=== PATIENT | male | born 1995 | race Caucasian/White ===

== ENCOUNTER 2023-06-28 09:28 | Outpatient (CLI) | payer BC, SELFPAY ==
--- NOTE | 2023-06-28 09:43 | ECG_ITS ---
Measurements Intervals [place] Rate: 74 P: 48 SC: 137 QRS: -40 QRSD: 113 T: 10 QT: 372 QTc: 415 Interpretive Statements SINUS RHYTHM WITH SINUS ARRHYTHMIA LEFT AXIS DEVIATION INCOMPLETE RIGHT BUNDLE BRANCH BLOCK DELAYED PRECORDIAL R/S TRANSITION BORDERLINE ECG NO PREVIOUS ECG AVAILABLE FOR COMPARISON Electronically Signed On 06-28-2023 11:21:00 CDT by Higinio Chávez D.O.
[2023-06-28 09:55] LABS: Basophils Absolute Auto 0.1 K/mm3 (0.0-0.1); Basophils Percent Auto 0.9 % (0.2-1.2); Eosinophils Absolute Auto 0.2 K/mm3 (0-0.3); Eosinophils Percent Auto 1.6 % (0-4.4); Hematocrit 47.8 % (42.0-52.0); Hemoglobin 15.4 g/dL (14.0-18.0); Immature Granulocyte Absolute 0.02 K/mm3 (0.00-0.031); Immature Granulocyte Percent A 0.2 % (0-0.5); Lymphocytes Absolute Auto 3.15 K/mm3 (0.9-3.2); Lymphocytes Percent Auto 33.5 % (18.3-44.2); Mean Corpuscular HGB Conc 32.2 g/dl (32-36); Mean Corpuscular Hemoglobin 28.4 pg (26-34); Mean Platelet Volume 9.4 fl (7.4-10.4); Monocytes Absolute Auto 0.8 K/mm3 (0.1-0.6); Neutrophils Absolute Auto 5.3 K/mm3 (1.3-6.7); Neutrophils Percent Auto 55.8 % (45.5-73.1); Platelet Count Result 214 k/mm3 (150-375); Red Blood Count 5.43 M/mm3 (4.6-6.20); Red Cell Distribution Width 13.4 % (11.5-14.5); White Blood Count 9.4 K/mm3 (4.5-10.0)
[2023-06-28 10:09] LABS: Cholesterol 189 mg/dL (0-200); HDL Direct 40 mg/dL; Triglycerides 169 mg/dL (<150)
[2023-06-28 10:20] LABS: LDL Cholesterol Direct 98 mg/dL
[2023-06-28 10:40] LABS: Thyroid Stimulating Hormone 0.898 uIU/mL (0.465-4.680)
== END 2023-06-28 09:29 | disposition home or self-care (01) ==
PROVIDERS: PCP Family Medicine; Visit Provider Physician Assistant Medical
DX: R07.89 Other chest pain (principal); E78.5 Hyperlipidemia, unspecified; F41.9 Anxiety disorder, unspecified; Z13.220 Encounter for screening for lipoid disorders; R94.31 Abnormal electrocardiogram [ECG] [EKG]
CPT/HCPCS: 36415; 80061; 84443; 85025; 93005

== ENCOUNTER 2024-06-08 15:37 | Outpatient (CLI) | payer BC, SELFPAY ==
--- NOTE | ~2024-06-08 | XR_ITS ---
EXAMINATION: XR_[id number]_CR DATE: 06/08/2024 16:14 INDICATION: Neck pain. TECHNIQUE: 3 views of the cervical spine on 4 radiographs were obtained. COMPARISON: None. FINDINGS: There is 5 degrees levocurvature of cervical spine. Vertebral body heights and intervertebr al disc heights are normal. Osseous central spinal canal is developmentally small. There is multileve l mild facet joint osteoarthritis. No prevertebral soft tissue swelling. IMPRESSION: 1. Developmentally small central spinal canal. Reviewed, dictated and finalized at location A.
--- NOTE | ~2024-06-08 | XR_ITS ---
EXAMINATION: XR lumbar spine 2-3V DATE: 06/08/2024 16:14 INDICATION: Low back pain. TECHNIQUE: 2 views of lumbar spine were obtained. COMPARISON: None. FINDINGS: Bone alignment is normal. Vertebral body heights and intervertebral disc heights are normal . There are Schmorl's nodes at multiple levels. There is multilevel mild facet joint osteoarthritis. IMPRESSION: 1. Mild lumbar facet joint osteoarthritis. Reviewed, dictated and finalized at location A.
== END 2024-06-08 15:38 | disposition home or self-care (01) ==
PROVIDERS: PCP Family Medicine
DX: M99.01 Segmental and somatic dysfunction of cervical region (principal); M99.03 Segmental and somatic dysfunction of lumbar region; M47.896 Other spondylosis, lumbar region
CPT/HCPCS: 72040; 72100